=== PATIENT | male | born 1990 | race Caucasian/White ===

== ENCOUNTER 2022-06-03 11:19 | Emergency (ER) | payer OTHER, SELFPAY ==
[2022-06-03 11:26] VITALS: BP 141/93; PULSE 71; RESP 18; TEMP 36.2; O2SAT 99; BMI 24.3
--- NOTE | 2022-06-03 11:27 | ED_ITS ---
HPI - Abdominal Pain General Chief Complaint: General Medical <Denisse Calhoun NP - Last Filed: 06/03/22 12:02> Stated Complaint: unable to eat, stomach issues <Denisse Calhoun NP - Last Filed: 06/03/22 12:02> Time Seen by Provider: 06/03/22 14:01 <Denisse Calhoun NP - Last Filed: 06/03/22 12:02> Source: patient <VAUGHN Ellison - Last Filed: 06/03/22 16:14> Mode of arrival: ambulatory <VAUGHN Ellison Last Filed: 06/03/22 16:14> Limitations: no limitations <VAUGHN Ellison Last Filed: 06/03/22 16:14> History of Present Illness HPI narrative: 31-year-old male with recent contact with him pursue have had influenza presents to the ER for evaluation of inability to eat or drink much for the last 5 days. He states he has ongoing nausea, nasal and chest congestion and generally does not feel well after influenza exposure to his ex-girlfriend last week. He states he initially had cough, nasal congestion, chest congestion and some body aches. He had decreased p.o. intake. He feels like he recovered from the respiratory aspect of the flu but now feels like he ?has inflammation in his stomach. ? he has nausea but has not vomited. He states when he tries to eat his stomach feels full. He feels a burning sensation in his stomach. Pain is in his epigastric area does not radiate <VAUGHN Ellison - Last Filed: 06/03/22 16:14> MD elicited complaint: abdominal pain and other (Nausea ) <VAUGHN Ellison Last Filed: 06/03/22 16:14> Pertinent past history: none <VAUGHN Ellison Last Filed: 06/03/22 16:14> Onset (ago): day(s) <VAUGHN Ellison Last Filed: 06/03/22 16:14> Pain Consistency: intermittent <VAUGHN Ellison Last Filed: 06/03/22 16:14> Location: epigastric <VAUGHN Ellison Last Filed: 06/03/22 16:14> Severity: moderate <VAUGHN Ellison - Last Filed: 06/03/22 16:14> Quality: aching <VAUGHN Ellison - Last Filed: 06/03/22 16:14> Radiation: none <VAUGHN Ellison Last Filed: 06/03/22 16:14> Migration to: no migration <VAUGHN Ellison Last Filed: 06/03/22 16:14> Exacerbating factors: eating <VAUGHN Ellison - Last Filed: 06/03/22 16:14> Relieving factors: nothing <VAUGHN Ellison Last Filed: 06/03/22 16:14> Context: sick contacts <VAUGHN Ellison Last Filed: 06/03/22 16:14> Associated symptoms: nausea <VAUGHN Ellison Last Filed: 06/03/22 16:14> Related Data Home Medications: Previous Rx's Medication Instructions Recorded omeprazole magnesium 20 mg 40 mg PO DAILY #30 tabs 06/03/22 tablet,delayed release (Prilosec OTC) <Denisse Calhoun NP - Last Filed: 06/03/22 12:02> Allergies/Adverse Reactions: Allergies Allergy/AdvReac Type Severity Reaction Status Date / Time No Known Allergies Allergy Verified 06/03/22 11:26 <Denisse Calhoun NP - Last Filed: 06/03/22 12:02> Review of Systems Review of Systems Constitutional: No Fever, No Chills ENT/Mouth: No sore throat, No Rhinorrhea, No Swallowing Difficulty Cardiovascular: No Chest Pain, No SOB Respiratory: No Cough, No Sputum, No Wheezing, No dyspnea Gastrointestinal: No Nausea, No Vomiting, No Diarrhea, + abdominal Pain Genitourinary: No Dysuria, No Urinary Frequency, No Hematuria Musculoskeletal: No joint pain, No Myalgias Skin: No Skin Lesions, No rash Neuro: No Weakness, No Numbness, No Dizziness, No Headache Psych: No Anxiety/Panic, No Depression Heme/Lymph: No Bruising, No Lymphadenopathy <VAUGHN Ellison Last Filed: 06/03/22 16:14> PMFSH Social History Social History: Social History Advance Directives: No Advance Directives Information Provided: Yes <Denisse Calhoun NP - Last Filed: 06/03/22 12:02> Physical Exam ED Vital Signs: Vital Signs - 24 hr 06/03/22 11:26 06/03/22 14:38 Temperature 97.2 F 97.4 F Pulse Rate 71 55 Respiratory Rate 18 16 Blood Pressure 141/93 H 127/83 Pulse Oximetry 99 98 Oxygen Delivery Method Room Air BMI result Body Mass Index 24.3 <Denisse Calhoun NP - Last Filed: 06/03/22 12:02> Vital Signs - 24 hr 06/03/22 11:26 06/03/22 14:38 Temperature 97.2 F 97.4 F Pulse Rate 71 55 Respiratory Rate 18 16 Blood Pressure 141/93 H 127/83 Pulse Oximetry 99 98 Oxygen Delivery Method Room Air BMI result Body Mass Index 24.3 <VAUGHN Ellison - Last Filed: 06/03/22 16:14> Appearance: Alert. Oriented X3. No acute distress. Eyes: Pupils equal, round and reactive to light. ENT: Pharynx normal. Neck: Normal inspection. Neck supple. CVS: Normal heart rate and rhythm. Pulses normal. Respiratory: No respiratory distress. Breath sounds normal. Abdomen: Soft and nontender. +BS x4 Skin: Skin warm and dry. Normal skin color. Normal skin turgor. No rashes. Extremities: No lower extremity edema. Neuro: Oriented X 3. No motor deficit. No sensory deficit. <VAUGHN Ellison - Last Filed: 06/03/22 16:14> Course Course Course Narrative: This is a rapid medical exam. Additional HPI/ROS/PE deferred to primary provider. 31 yo male healthy here tactile temps, nausea/vomiting, upper abdominal pain, sore throat/congestion x 4-5 days. Exposed to someone who had the flu. VSS. Will check testing for flu/covid/rsv, labs, UA. Will provide sublingual Zofran. <Denisse Calhoun NP - Last Filed: 06/03/22 12:02> Reevaluation(s) Reevaluation #1: Patient's labs are unremarkable. Most likely had Flu from his recent exposure. now with nausea and epigastric fullness. Tolerating PO. appears well. likely gastritis, will start on PPI and diet modifications. Patient agrees wtih plan and is stable for d/c. <VAUGHN Ellison - Last Filed: 06/03/22 16:14> Medications Administered Discontinued Medications Generic Name Dose Route Start Last Admin Trade Name Freq PRN Reason Stop Dose Admin Sodium Chloride 1,000 mls @ 999 mls/hr 06/03/22 14:15 06/03/22 14:55 Ns IVCONT 06/03/22 15:15 999 mls/hr .Q1H1M LUIS M Administration Ondansetron HCl 4 mg 06/03/22 11:27 06/03/22 11:31 Ondansetron Odt 4 Mg Tab.Rapdis TRANSLINGU 06/03/22 11:28 4 mg ONCE ONE Administration <Denisse Calhoun NP - Last Filed: 06/03/22 12:02> Medications Administered Discontinued Medications Generic Name Dose Route Start Last Admin Trade Name Freq PRN Reason Stop Dose Admin Sodium Chloride 1,000 mls @ 999 mls/hr 06/03/22 14:15 06/03/22 14:55 Ns IVCONT 06/03/22 15:15 999 mls/hr .Q1H1M LUIS M Administration Ondansetron HCl 4 mg 06/03/22 11:27 06/03/22 11:31 Ondansetron Odt 4 Mg Tab.Rapdis TRANSLINGU 06/03/22 11:28 4 mg ONCE ONE Administration <VAUGHN Ellison - Last Filed: 06/03/22 16:14> MDM - Abdominal Pain Lab Data Result diagrams: : 06/03/22 11:37 06/03/22 11:37 <Denisse Calhoun NP - Last Filed: 06/03/22 12:02> Labs: Lab Results 06/03/22 06/03/22 06/03/22 Range/Units 11:37 11:37 14:36 WBC 5.2 (4.8-10.8) X10*3/uL RBC 5.77 (4.60-5.80) X10*6/uL Hgb 16.5 (14.0-18.0) g/dl Hct 47.8 (42.0-52.0) % MCV 82.8 (80.0-98.0) fL MCH 28.6 (27.0-33.0) pg MCHC 34.5 (31.0-36.0) g/dl RDW 12.0 (11.0-16.0) % Plt Count 190 (160-400) X10*3/uL MPV 11.5 (9.4-12.4) fL Immature Gran % (Auto) 0.2 (0.0-0.4) % Neut % (Auto) 52.9 (45-73) % Lymph % (Auto) 39.2 (20-40) % [place] % (Auto) 7.3 (2-11) % Eos % (Auto) 0.2 (0-4) % Baso % (Auto) 0.2 (0-2) % Lymph # (Auto) 2.1 (1.2-4.9) X10*3/uL [place] # (Auto) 0.4 (0.1-1.2) X10*3/uL Eos # (Auto) 0.0 (0.0-0.4) X10*3/uL Baso # (Auto) 0.0 (0.0-0.2) X10*3/uL Abs Immat Gran (auto) 0.01 (0.00-0.03) X10*3/uL Absolute Neuts (auto) 2.8 (2.0-8.3) x10*3/uL Absolute Nucleated RBC 0.000 (0.0-0.012) X10*3/uL Nucleated RBC % (auto) 0.0 (0.0-0.2) /100WBC Sodium 134 L (135-145) mmol/L Potassium 3.8 (3.3-5.1) mmol/L Chloride 101 (96-108) mmol/L Carbon Dioxide 27 (22-29) mmol/L Anion Gap 10 L (12-20) BUN 10 (9-16) mg/dL Creatinine 0.93 (0.5-1.4) mg/dL Estim Creat Clear Calc 117.1 Estimated GFR > 60 Random Glucose 90 (60-115) mg/dL Calcium 9.7 (8.4-10.2) mg/dL Total Bilirubin 0.7 (0.0-1.0) mg/dL Direct Bilirubin 0.3 (0.0-0.5) mg/dL AST 18 (5-37) U/L ALT 19 (0-40) U/L Alkaline Phosphatase 64 (39-117) U/L Total Protein 7.4 (6.5-8.0) g/dL Albumin 4.5 (3.5-5.0) g/dL Influenza Type A (PCR) NEGATIVE (Negative) Influenza Type B (PCR) NEGATIVE (Negative) RSV RNA Qual (PCR) NEGATIVE (Negative) SARS-CoV-2 RNA (RT-PCR) NEGATIVE (Negative) <Denisse Calhoun, L[employer]ER - Last Filed: 06/03/22 12:02> Lab Results 06/03/22 06/03/22 06/03/22 Range/Units 11:37 11:37 14:36 WBC 5.2 (4.8-10.8) X10*3/uL RBC 5.77 (4.60-5.80) X10*6/uL Hgb 16.5 (14.0-18.0) g/dl Hct 47.8 (42.0-52.0) % MCV 82.8 (80.0-98.0) fL MCH 28.6 (27.0-33.0) pg MCHC 34.5 (31.0-36.0) g/dl RDW 12.0 (11.0-16.0) % Plt Count 190 (160-400) X10*3/uL MPV 11.5 (9.4-12.4) fL Immature Gran % (Auto) 0.2 (0.0-0.4) % Neut % (Auto) 52.9 (45-73) % Lymph % (Auto) 39.2 (20-40) % [place] % (Auto) 7.3 (2-11) % Eos % (Auto) 0.2 (0-4) % Baso % (Auto) 0.2 (0-2) % Lymph # (Auto) 2.1 (1.2-4.9) X10*3/uL [place] # (Auto) 0.4 (0.1-1.2) X10*3/uL Eos # (Auto) 0.0 (0.0-0.4) X10*3/uL Baso # (Auto) 0.0 (0.0-0.2) X10*3/uL Abs Immat Gran (auto) 0.01 (0.00-0.03) X10*3/uL Absolute Neuts (auto) 2.8 (2.0-8.3) x10*3/uL Absolute Nucleated RBC 0.000 (0.0-0.012) X10*3/uL Nucleated RBC % (auto) 0.0 (0.0-0.2) /100WBC Sodium 134 L (135-145) mmol/L Potassium 3.8 (3.3-5.1) mmol/L Chloride 101 (96-108) mmol/L Carbon Dioxide 27 (22-29) mmol/L Anion Gap 10 L (12-20) BUN 10 (9-16) mg/dL Creatinine 0.93 (0.5-1.4) mg/dL Estim Creat Clear Calc 117.1 Estimated GFR > 60 Random Glucose 90 (60-115) mg/dL Calcium 9.7 (8.4-10.2) mg/dL Total Bilirubin 0.7 (0.0-1.0) mg/dL Direct Bilirubin 0.3 (0.0-0.5) mg/dL AST 18 (5-37) U/L ALT 19 (0-40) U/L Alkaline Phosphatase 64 (39-117) U/L Total Protein 7.4 (6.5-8.0) g/dL Albumin 4.5 (3.5-5.0) g/dL Influenza Type A (PCR) NEGATIVE (Negative) Influenza Type B (PCR) NEGATIVE (Negative) RSV RNA Qual (PCR) NEGATIVE (Negative) SARS-CoV-2 RNA (RT-PCR) NEGATIVE (Negative) <VAUGHN Ellison - Last Filed: 06/03/22 16:14> Critical Care Time Critical Care Time Critical Care Time: No <VAUGHN Ellison - Last Filed: 06/03/22 16:14> Discharge Plan Discharge Clinical Impression: Gastritis <Denisse Calhoun NP - Last Filed: 06/03/22 12:02> Patient Disposition: Home, Self-Care <Denisse Calhoun NP - Last Filed: 06/03/22 12:02> Instructions: Gastritis (ED), Diet for Stomach Ulcers and Gastritis (ED) <Denisse Calhoun NP - Last Filed: 06/03/22 12:02> Additional Instructions: Your lab workup today was unremarkable. Your pain is most likely due to gastritis which is and irritation and inflammation of your stomach lining. Start taking the prescribed medication as directed for this. Stick to a bland diet. Avoid foods high in acid, avoid alcohol and NSAID medications like Aleve, Motrin, Advil or ibuprofen. Follow up with your doctor as needed. Follow up with GI doctor if you symptoms persist despite dietary modifications and medication. If you develop new or worsening symptoms call 911 or come back to the ER for further evaluation. <Denisse Calhoun NP - Last Filed: 06/03/22 12:02> Prescriptions: New omeprazole magnesium [Prilosec OTC] 20 mg tablet,delayed release (DR/EC) 40 mg PO DAILY Qty: 30 0RF <Denisse Calhoun NP - Last Filed: 06/03/22 12:02> Stand Alone Forms: Work/School Release <Denisse Calhoun NP - Last Filed: 06/03/22 12:02>
[2022-06-03] MEDS: Ondansetron ODT 4 MG TAB.RAPDIS TRANSLINGU (11:31)
[2022-06-03 11:43] LABS: MANUAL DIFF FLAG NO
[2022-06-03 11:48] LABS: Basophils Percent Auto 0.2 % (0-2); Eosinophils Percent Auto 0.2 % (0-4); Hematocrit 47.8 % (42.0-52.0); Hemoglobin 16.5 g/dl (14.0-18.0); Imm Gran Abs Auto 0.01 X10*3/uL (0.00-0.03); Imm Gran Pct Auto 0.2 % (0.0-0.4); Lymphocytes Absolute Auto 2.1 X10*3/uL (1.2-4.9); Lymphocytes Percent Auto 39.2 % (20-40); Mean Corpuscular HGB Conc 34.5 g/dl (31.0-36.0); Mean Corpuscular Hemoglobin 28.6 pg (27.0-33.0); Mean Corpuscular Volume 82.8 fL (80.0-98.0); Mean Platelet Volume 11.5 fL (9.4-12.4); Monocytes Absolute Auto 0.4 X10*3/uL (0.1-1.2); Monocytes Percent Auto 7.3 % (2-11); Neutrophils Absolute Auto 2.8 x10*3/uL (2.0-8.3); Neutrophils Percent Auto 52.9 % (45-73); Platelet Count 190 X10*3/uL (160-400); Red Blood Count 5.77 X10*6/uL (4.60-5.80); White Blood Count 5.2 X10*3/uL (4.8-10.8)
[2022-06-03 12:14] LABS: Alanine Aminotransferase 19 U/L (0-40); Albumin Level 4.5 g/dL (3.5-5.0); Alkaline Phosphatase 64 U/L (39-117); Anion Gap 10 (12-20); Aspartate Amino Transferase 18 U/L (5-37); Bilirubin Direct 0.3 mg/dL (0.0-0.5); Bilirubin Total 0.7 mg/dL (0.0-1.0); Blood Urea Nitrogen 10 mg/dL (9-16); Calcium 9.7 mg/dL (8.4-10.2); Carbon Dioxide 27 mmol/L (22-29); Chloride 101 mmol/L (96-108); Creatinine Clr Calc Pharmacy 117.1; Estimated Glomerular Filt Rate > 60; Glucose Random 90 mg/dL (60-115); Potassium 3.8 mmol/L (3.3-5.1); Sodium 134 mmol/L (135-145); Total Protein 7.4 g/dL (6.5-8.0)
[2022-06-03 14:38] VITALS: BP 127/83; PULSE 55; RESP 16; TEMP 36.3; O2SAT 98
[2022-06-03] MEDS: 0.9 % Sodium Chloride 1,000 ML 999 ML IVCONT (14:55)
[2022-06-03 15:48] LABS: Influenza A PCR NEGATIVE (Negative); Influenza B PCR NEGATIVE (Negative); Resp Syncy Virus RNA Qual PCR NEGATIVE (Negative); SARS COV2 PCR INHOUSE NEGATIVE (Negative)
== END 2022-06-03 16:08 | disposition home or self-care (01) ==
PROVIDERS: Nurse Practitioner Family; Emergency Provider Emergency Medicine
DX: K29.70 Gastritis, unspecified, without bleeding (principal); Z20.822 Contact with and (suspected) exposure to COVID-19
CPT/HCPCS: 0241U; 36415; 80048; 80076; 85025; 99283; 99284

== ENCOUNTER 2023-01-10 11:05 | Emergency (ER) | payer OTHER, SELFPAY ==
[2023-01-10 11:12] VITALS: BP 152/99; PULSE 86; RESP 16; TEMP 36.6; O2SAT 95; BMI 23.6
--- NOTE | 2023-01-10 11:12 | ED.GENADULT ---
HPI - General Adult General Chief complaint: Nausea/Vomiting/Diarrhea Stated complaint: Vomiting, swollen abd Time Seen by Provider: 01/10/23 11:23 Source: patient, RN notes reviewed and old records reviewed Mode of arrival: ambulatory History of Present Illness HPI narrative: 32-year-old male with a past medical history of gastritis presenting to the ED complaining of epigastric abdominal pain/bloating, nausea, vomiting, and diarrhea x1 year. Also reports intermittent dark and bloody stools. Denies fever/chills, dysuria/hematuria, hematemesis, CP/SOB Onset (ago): year(s) Related Data Previous Rx's Medication Instructions Recorded omeprazole magnesium 20 mg 40 mg PO DAILY #30 tabs 06/03/22 tablet,delayed release (Prilosec OTC) ondansetron 4 mg disintegrating 4 mg PO Q8H PRN nausea and 01/10/23 tablet vomiting #10 tabs sucralfate 1 gram tablet 1 g PO BID 4 weeks #56 tabs 01/10/23 Allergies Allergy/AdvReac Type Severity Reaction Status Date / Time No Known Allergies Allergy Verified 01/10/23 11:12 Review of Systems Review of Systems: Constitutional: No Fever, No Chills, No Fatigue, No Malaise ENT/Mouth: No Ear Pain, No sore throat, No Rhinorrhea, No Swallowing Difficulty Eyes: No Eye Pain, No Swelling, No Redness, No Vision Changes Cardiovascular: No Chest Pain, No SOB, No Palpitations Respiratory: No Cough, No Sputum, No Dyspnea Gastrointestinal: + Nausea, + Vomiting, + Diarrhea, No Constipation, + Abdominal pain, No Hematochezia, + Melena Genitourinary: No irregular bleeding, No Dysuria, No Urinary Frequency, No Hematuria, No Flank Pain Musculoskeletal: No joint pain, No Myalgias, No Joint Swelling Skin: No Skin Lesions, No rash Neuro: No Weakness, No Dizziness, No Headache Yes all other systems are reviewed and are negative Constitutional: Constitutional: Reports as per [facility] Past Medical History Attestation statement: The following information was validated with the patient. Source: old records reviewed Social History Social History Smoked in Last 30 Days: No Use of substances other than those prescribed or required for medical reasons: Yes Substance Use Type: Marijuana Substance Use Frequency: Daily Last Used Substance: Days (ago) Advance Directives: No Physical Exam ED Vital Signs: Vital Signs - 24 hr 01/10/23 11:12 01/10/23 14:21 01/10/23 16:29 Temperature 97.9 F 98.8 F 98.6 F Pulse Rate 86 88 71 Respiratory Rate 16 18 16 Blood Pressure 152/99 H 142/70 H 118/70 Pulse Oximetry 95 96 97 Oxygen Delivery Method Room Air Room Air Room Air BMI result Body Mass Index 23.6 Const General: cooperative, healthy appearing and no acute distress Orientation/consciousness: patient oriented x3 Limitations: no limitations HENMT Head: Yes normal to inspection and Yes atraumatic Ears: hearing grossly normal bilaterally General nose exam: Normal external nose present Face and sinus: Yes normal facial exam Eyes General: appearance normal, both eyes and all related structures EOM: EOMs intact bilaterally Neck Neck: Yes normal visual inspection and Yes no meningeal signs Resp Effort & Inspection: normal respiratory effort and no respiratory distress Auscultation: clear to auscultation bilaterally Cardio Rate: regular rate Heart sounds: S1 normal heart sound present and S2 normal heart sound present GI Inspection: Yes normal to inspection Palpation (GI): Soft to palpation, Tenderness to palpation present (GI) in the epigastrum; with no rebound tenderness, no guarding and not rigid General: Yes no CVA tenderness Back/Spine/Pelvis Back: no CVA tenderness Skin Rashes: no rashes Wounds: no wounds Neuro General: patient oriented x3, tone normal and no meningeal signs Gait exam (Neuro): Normal gait present Extrem General: Yes normal to inspection Course Course Course Narrative: This is an RME: Additional HPI, ROS, PE not included below will be deferred to primary provider. Patient is a 32-year-old male with no past medical history presenting to the emergency department with complaint of nausea, vomiting, and diarrhea. He also reports intermittent epigastric pain and bloating. States that his brother last year from stomach cancer. He denies bloody or coffee ground emesis, but does report intermittent bright red blood in stools for past several years. -no leukocytosis. Labs otherwise reassuring. UA with protein and >=160 ketones, not infected > patient received IVF in the ED > patient unable to provide stool sample in the ED, still refusing rectal exam -1700--on re-evaluation patient reports symptomatic improvement, is tolerating p.o.. Stressed importance of close follow-up with the GI/PCP and compliance with newly prescribed medication Medications Administered Discontinued Medications Generic Name Dose Route Start Last Admin Trade Name Ольга PRN Reason Stop Dose Admin Al Hydroxide/Mg Hydroxide 30 ml 01/10/23 11:42 01/10/23 12:07 Magnesium Hydrox/Alum Hydrox 30 Ml Oral.Susp PO 01/10/23 11:43 30 ml ONCE ONE Administration Dicyclomine HCl 10 mg 01/10/23 14:27 01/10/23 15:17 Dicyclomine Hcl 10 Mg Capsule PO 01/10/23 14:28 10 mg ONCE ONE Administration Famotidine 20 mg 01/10/23 11:42 01/10/23 12:07 Famotidine 20 Mg Tablet PO 01/10/23 11:43 20 mg ONCE ONE Administration Sodium Chloride 1,000 mls @ 999 mls/hr 01/10/23 14:45 01/10/23 16:00 Ns IV 01/10/23 15:45 999 mls/hr .Q1H1M LUIS M Infusion Metoclopramide HCl 10 mg 01/10/23 14:27 01/10/23 15:17 Metoclopramide Hcl 10 Mg Tablet PO 01/10/23 14:28 10 mg ONCE ONE Administration Ondansetron HCl 4 mg 01/10/23 11:42 01/10/23 12:07 Ondansetron Odt 4 Mg Tab.Rapdis TRANSLINGU 01/10/23 11:43 4 mg ONCE ONE Administration Sucralfate 1 gm 01/10/23 14:35 01/10/23 15:17 Sucralfate 1 Gm Tablet PO 01/10/23 14:36 1 gm ONCE ONE Administration Medical Decision Making Medical Decision Making MDM Narrative: 32-year-old male with a past medical history of gastritis presenting to the ED complaining of epigastric abdominal pain/bloating, nausea, vomiting, and diarrhea x1 year. Also reports intermittent dark and bloody stools. On exam mildly hypertensive likely from discomfort, abdomen soft with mild epigastric tenderness, no rebound or guarding, no CVAT. Patient deferred/refused rectal exam. Concern for gastritis/GERD vs pancreatitis vs GI bleed. Rule out anemia. Lower suspicion for cholecystitis/lithiasis, appendicitis/diverticulitis or UTI Plan: Labs, UA, occult stool if patient can provide stool sample, GI cocktail Please refer to course for remaining clinical decision making, interpretation of labs/imaging results, and discussions with consultants and/or family members. Differential Diagnosis Differential Diagnoses: The differential diagnosis associated with the presentation includes As above Admission/Observation Consideration of admission/observation: Escalation of care including admission/observation considered Lab Data MDM Lab Attestation statement: I reviewed the patient's lab results. 01/10/23 11:20 01/10/23 11:20 Labs: Lab Results 01/10/23 01/10/23 01/10/23 Range/Units 11:20 11:20 14:20 WBC 10.1 (4.8-10.8) X10*3/uL RBC 5.69 (4.60-5.80) X10*6/uL Hgb 16.5 (14.0-18.0) g/dl Hct 47.7 (42.0-52.0) % MCV 83.8 (80.0-98.0) fL MCH 29.0 (27.0-33.0) pg MCHC 34.6 (31.0-36.0) g/dl RDW 12.2 (11.0-16.0) % Plt Count 246 D (160-400) X10*3/uL MPV 10.7 (9.4-12.4) fL Immature Gran % (Auto) 0.2 (0.0-0.4) % Neut % (Auto) 80.1 H (45-73) % Lymph % (Auto) 15.8 L (20-40) % [place] % (Auto) 3.5 (2-11) % Eos % (Auto) 0.2 (0-4) % Baso % (Auto) 0.2 (0-2) % Lymph # (Auto) 1.6 (1.2-4.9) X10*3/uL [place] # (Auto) 0.4 (0.1-1.2) X10*3/uL Eos # (Auto) 0.0 (0.0-0.4) X10*3/uL Baso # (Auto) 0.0 (0.0-0.2) X10*3/uL Abs Immat Gran (auto) 0.02 (0.00-0.03) X10*3/uL Absolute Neuts (auto) 8.1 (2.0-8.3) x10*3/uL Absolute Nucleated RBC 0.000 (0.0-0.012) X10*3/uL Nucleated RBC % (auto) 0.0 (0.0-0.2) /100WBC Sodium 137 (135-145) mmol/L Potassium 3.9 (3.3-5.1) mmol/L Chloride 104 (96-108) mmol/L Carbon Dioxide 21 L (22-29) mmol/L Anion Gap 16 (12-20) BUN 12 (9-16) mg/dL Creatinine 1.02 (0.5-1.4) mg/dL Estim Creat Clear Calc 105.8 Estimated GFR > 60 Random Glucose 84 (60-115) mg/dL Calcium 10.6 H D (8.4-10.2) mg/dL Magnesium 2.1 (1.6-2.6) mg/dL Total Bilirubin 1.2 H (0.0-1.0) mg/dL AST 19 (5-37) U/L ALT 36 (0-40) U/L Alkaline Phosphatase 78 (39-117) U/L Total Protein 8.2 H (6.5-8.0) g/dL Albumin 4.9 (3.5-5.0) g/dL Lipase 19 (8-78) U/L Urine Color Yellow Urine Appearance Clear Urine pH 5.5 (5.0-9.0) Ur Specific [place] >= 1.030 H (1.005-1.025) Urine Protein 30 (1+) H (Neg-Trace) mg/dL Urine Glucose (UA) Negative (Negative) mg/dL Urine Ketones >=160 (Negative) mg/dL Urine Blood Negative (Negative) Urine Nitrite Negative (Negative) Ur Leukocyte Esterase Negative (Negative) Urine RBC 0-2 (0-2) /HPF Urine WBC 0-5 (0-5) /HPF Ur Squamous Epith Cells 0-2 (0-2) /HPF Urine Bacteria None Seen (None Seen) Hyaline Casts 0-2 (0-2) /LPF Radiology Impression Discussion of test interpretation with radiology: I have reviewed the radiologist's reading. External Record Review External record reviewed: Inpatient record, Office record, Outpatient record, Prior outpatient labs, Prior outpatient radiology, Primary care record and Outside ED record Tests considered The following testing was considered but not selected: As above Prescription Management I considered prescription management with: Pain Medication Chronic Conditions family hs gastric CA Discharge Plan Discharge Clinical Impression: Epigastric abdominal pain, Dehydration Patient Disposition: Home, Self-Care Instructions: Dehydration (ED), Epigastric Pain (ED) Additional Instructions: Your blood work is reassuring however you are mildly dehydrated. Please increase fluid intake Zofran as an antinausea medication, take as needed Continue taking omeprazole. In addition sucralfate will help with potential ulcers YOU NEED TO FOLLOW-UP WITH A GI SPECIALIST If symptoms persist or worsen, you are unable to eat or drink persistent nausea/vomiting or worsening pain return to the emergency department Prescriptions: New sucralfate 1 gram tablet 1 g PO BID 28 Days Qty: 56 0RF ondansetron 4 mg tablet,disintegrating 4 mg PO Q8H PRN (Reason: nausea and vomiting) Qty: 10 0RF No Action omeprazole magnesium [Prilosec OTC] 20 mg tablet,delayed release (DR/EC) 40 mg PO DAILY Qty: 30 0RF Referrals: [facility] [place] G[facility] [Provider Group] - 5 days Physician,Unknown J [Primary Care Provider] - Interventions: ED Discharge Assessment Last Done: 01/10/23 17:27 Discharge Date/Time: 01/10/23 17:27
[2023-01-10 11:24] LABS: MANUAL DIFF FLAG NO
[2023-01-10 11:26] LABS: Basophils Percent Auto 0.2 % (0-2); Eosinophils Percent Auto 0.2 % (0-4); Hematocrit 47.7 % (42.0-52.0); Hemoglobin 16.5 g/dl (14.0-18.0); Imm Gran Abs Auto 0.02 X10*3/uL (0.00-0.03); Imm Gran Pct Auto 0.2 % (0.0-0.4); Lymphocytes Absolute Auto 1.6 X10*3/uL (1.2-4.9); Lymphocytes Percent Auto 15.8 % (20-40); Mean Corpuscular HGB Conc 34.6 g/dl (31.0-36.0); Mean Corpuscular Volume 83.8 fL (80.0-98.0); Mean Platelet Volume 10.7 fL (9.4-12.4); Monocytes Absolute Auto 0.4 X10*3/uL (0.1-1.2); Monocytes Percent Auto 3.5 % (2-11); Neutrophils Absolute Auto 8.1 x10*3/uL (2.0-8.3); Neutrophils Percent Auto 80.1 % (45-73); Platelet Count 246 X10*3/uL (160-400); Red Blood Count 5.69 X10*6/uL (4.60-5.80); Red Cell Distribution Width 12.2 % (11.0-16.0); White Blood Count 10.1 X10*3/uL (4.8-10.8)
[2023-01-10 12:01] LABS: Alanine Aminotransferase 36 U/L (0-40); Albumin Level 4.9 g/dL (3.5-5.0); Alkaline Phosphatase 78 U/L (39-117); Anion Gap 16 (12-20); Aspartate Amino Transferase 19 U/L (5-37); Bilirubin Total 1.2 mg/dL (0.0-1.0); Blood Urea Nitrogen 12 mg/dL (9-16); Calcium 10.6 mg/dL (8.4-10.2); Carbon Dioxide 21 mmol/L (22-29); Chloride 104 mmol/L (96-108); Creatinine Clr Calc Pharmacy 105.8; Estimated Glomerular Filt Rate > 60; Glucose Random 84 mg/dL (60-115); Lipase 19 U/L (8-78); Potassium 3.9 mmol/L (3.3-5.1); Sodium 137 mmol/L (135-145); Total Protein 8.2 g/dL (6.5-8.0)
[2023-01-10] MEDS: Magnesium Hydrox/Alum Hydrox 30 ML ORAL.SUSP PO (12:07)
[2023-01-10] MEDS: Ondansetron ODT 4 MG TAB.RAPDIS TRANSLINGU (12:07)
[2023-01-10] MEDS: Famotidine 20 MG TABLET PO (12:07)
[2023-01-10 12:41] LABS: Magnesium 2.1 mg/dL (1.6-2.6)
[2023-01-10 14:21] VITALS: BP 142/70; PULSE 88; RESP 18; TEMP 37.1; O2SAT 96
[2023-01-10 14:29] LABS: Appearance Urine Clear; Color Urine Yellow; Glucose Urine UA Negative (Negative); Leukocyte Esterase Urine Negative (Negative); Nitrite Urine Negative (Negative); PH 5.5 (5.0-9.0); Specific Gravity - Urine >= 1.030 (1.005-1.025); UMIC TRIGGER UACC YES; Urine Blood Negative (Negative); Urine Ketones >=160 mg/dL (Negative); Urine Protein 30 (1+) mg/dL (Neg-Trace)
[2023-01-10 14:31] LABS: Bacteria Urine None Seen (None Seen); Hyaline Casts Urine 0-2 /LPF (0-2); RBC Urine 0-2 /HPF (0-2); Squamous Epithelial Cell Urine 0-2 /HPF (0-2); WBC Urine 0-5 /HPF (0-5)
[2023-01-10] MEDS: Dicyclomine HCl 10 MG CAPSULE PO (15:17)
[2023-01-10] MEDS: Metoclopramide HCl 10 MG TABLET PO (15:17)
[2023-01-10] MEDS: Sucralfate 1 GM TABLET PO (15:17)
[2023-01-10] MEDS: 0.9 % Sodium Chloride 1,000 ML 999 ML IV (15:18)
--- NOTE | 2023-01-10 16:03 | PC.NURSE ---
IV was completely infused without any incidence at 1600pm
[2023-01-10 16:29] VITALS: BP 118/70; PULSE 71; RESP 16; TEMP 37; O2SAT 97
== END 2023-01-10 17:27 | disposition home or self-care (01) ==
PROVIDERS: Physician Assistant; Registered Nurse Emergency; Emergency Provider Emergency Medicine
DX: R10.13 Epigastric pain (principal); E86.0 Dehydration; R11.2 Nausea with vomiting, unspecified; F12.90 Cannabis use, unspecified, uncomplicated
CPT/HCPCS: 36415; 80053; 81001; 83690; 83735; 85025; 96360; 99284

== ENCOUNTER 2023-01-19 19:07 | Emergency (ER) | payer OTHER, SELFPAY ==
[2023-01-19 20:39] VITALS: BP 148/94; PULSE 79; RESP 20; TEMP 36.9; O2SAT 97; BMI 24.8
--- NOTE | 2023-01-19 20:39 | ED.GENADULT ---
HPI - General Adult General Chief complaint: Abdominal Pain Stated complaint: Abdominal pain Source: patient Mode of arrival: ambulatory Limitations: no limitations History of Present Illness HPI narrative: Patient is a 32 year old assigned male at with a history of gastritis and peptic ulcers presenting to the emergency department today with epigastric pain. Patient states that he was here recently for this same complaint and the pain is back. Patient denies any dizziness, lightheadedness, fever, chills, blurry vision, double vision, loss of vision, chest pain, difficulty breathing, shortness of breath, back pain, night sweats, pain with urination, increased urinary frequency, increased urinary urgency, blood in his urine, syncope or a near syncopal episode, recent trauma or falls, bowel incontinence, bladder incontinence, bowel retention, bladder retention, or any other complaints at this time. Onset (ago): day(s) Location: abdomen Radiation: non-radiation Severity: mild Severity scale (1-10): 3 Quality: dull Pain Consistency: constant Relieving factors: none Exacerbating factors: none Associated symptoms: nausea/vomiting Treatments prior to arrival: none Related Data Previous Rx's Medication Instructions Recorded omeprazole magnesium 20 mg 40 mg PO DAILY #30 tabs 06/03/22 tablet,delayed release (Prilosec OTC) ondansetron 4 mg disintegrating 4 mg PO Q8H PRN nausea and 01/10/23 tablet vomiting #10 tabs sucralfate 1 gram tablet 1 g PO BID 4 weeks #56 tabs 01/10/23 Allergies Allergy/AdvReac Type Severity Reaction Status Date / Time No Known Allergies Allergy Verified 01/19/23 20:42 Review of Systems Constitutional: Constitutional: Reports no additional constitutional complaints, Denies chills, Denies fever(s) and Denies night sweats Eyes: Eyes: Reports no additional eye complaints, Denies blurry vision, Denies change in vision, Denies diplopia, Denies eye discharge, Denies loss of vision and Denies eye pain ENT: Denies dizziness Cardiovascular: Cardiovascular: Reports no additional cardiovascular complaints, Denies chest pain, Denies lightheadedness, Denies Loss of Consciousness and Denies dyspnea Respiratory: Respiratory: Reports no additional respiratory complaints and Denies dyspnea Gastrointestinal: Gastrointestinal: Reports no additional gastrointestinal complaints, Reports abdominal pain, Denies melena, Reports hematochezia, Denies change in bowel habits, Denies change in stool character, Reports nausea and Reports vomiting Genitourinary: Genitourinary: Reports no additional male genitourinary complaints, Denies hematuria, Denies oliguria, Denies difficulty urinating, Denies dysuria, Denies urinary frequency, Denies urinary hesitancy, Denies urinary incontinence and Denies urinary urgency Musculoskeletal: Musculoskeletal: Reports no additional musculoskeletal complaints, Denies numbness and Denies tingling Neurologic: Denies dizziness, Denies loss of vision, Denies numbness and Denies tingling Psychiatric: Psychiatric: Reports no additional psychiatric complaints Endocrine: Endocrine: Reports no additional endocrine complaints Hematologic/Lymphatic: Hematologic/Lymphatic: Reports no additional hematologic/lymphatic complaints Allergic/Immunologic: Allergic/Immunologic: Reports no additional allergic/immunologic complaints PMFSH Past Medical History Attestation statement: The following information was validated with the patient. Source: old records reviewed and nursing notes reviewed Social History Social History Substance Use Type: Marijuana Advance Directives: No Advance Directives Information Provided: No Physical Exam ED Vital Signs: Vital Signs - 24 hr 01/19/23 20:39 Temperature 98.5 F Pulse Rate 79 Respiratory Rate 20 Blood Pressure 148/94 H Pulse Oximetry 97 Oxygen Delivery Method Room Air BMI result Body Mass Index 24.8 Const General: cooperative, no acute distress, alert and awake Nutritional Appearance: well nourished Orientation/consciousness: patient oriented x3 Limitations: no limitations HENMT Head: Yes normal to inspection and Yes atraumatic Ears: hearing grossly normal bilaterally and external ears normal General nose exam: Normal external nose present, no nasal discharge noted and no epistaxis Face and sinus: Yes normal facial exam, No abrasion and No laceration Mouth: Normal oral and palatal mucosa present, no drooling and no muffled voice Eyes General: appearance normal, both eyes and all related structures Periorbital: periorbital findings normal Eyelids: Yes eyelids normal Conjunctivae: conjunctivae normal Pupils: Equal, round and reactive pupils present EOM: EOMs intact bilaterally Neck Neck: Yes normal visual inspection, Yes full ROM and Yes no lymphadenopathy Chest Chest palpation & inspection: normal inspection of the chest Resp Effort & Inspection: normal respiratory effort and able to speak in complete sentences GI Inspection: Yes normal to inspection Palpation (GI): Soft to palpation, not firm, nontender and no guarding Neuro General: patient oriented x3 and moves all extremities Cranial nerves: Yes Equal, round and reactive pupils present Cognition (Neuro): normal cognition Motor exam (neuro): 5/5 motor strength present throughout Sensory Exam: Normal double simultaneous stimulation for sensation Coordination: [id number] test normal Extrem General: Yes normal to inspection, Yes full ROM and Yes capillary refill normal Psych Appearance: grossly normal Mental Status: mental status grossly normal Affect: normal affect Attitude: cooperative Thought process: Normal thought process present Thought content: Normal thought content present Insight: Good insight present (Psych) Course Course Course Narrative: RME performed by Payton Nunez PA-C. Patient is a 32 year old assigned male at presenting to the emergency department with abdominal pain, fatigue, and lack of appetite. Patient states that he was seen here on 01/10/2023 for this and it has not gotten better. Labs ordered. Patient placed back in the waiting room pending room availability and results. Medical Decision Making Medical Decision Making MDM Narrative: Patient is a 32 year old assigned male at with a history of gastritis and peptic ulcers presenting to the emergency department today with abdominal pain, nausea, vomiting, and bright red blood when wiping. Patient's physical exam was unremarkable. Patient's blood work was unremarkable. Patient eloped from the department before myself or any of the other emergency department providers could explain any physical exam findings, test results, treatment or treatment plan. Differential Diagnosis Differential Diagnoses: The differential diagnosis associated with the presentation includes Epigastric pain Ulcers Gastritis Chronic abdominal pain Lab Data MDM Lab Attestation statement: I reviewed the patient's lab results. My interpretation of these studies and their corresponding values is that they are grossly normal. 01/19/23 20:48 01/19/23 20:48 Labs: Lab Results 01/19/23 01/19/23 Range/Units 20:48 20:48 WBC 9.2 (4.8-10.8) X10*3/uL RBC 5.82 H (4.60-5.80) X10*6/uL Hgb 16.8 (14.0-18.0) g/dl Hct 49.0 (42.0-52.0) % MCV 84.2 (80.0-98.0) fL MCH 28.9 (27.0-33.0) pg MCHC 34.3 (31.0-36.0) g/dl RDW 12.0 (11.0-16.0) % Plt Count 236 (160-400) X10*3/uL MPV 10.7 (9.4-12.4) fL Immature Gran % (Auto) 0.2 (0.0-0.4) % Neut % (Auto) 76.4 H (45-73) % Lymph % (Auto) 16.2 L (20-40) % [facility] [facility] % (Auto) 6.3 (2-11) % Eos % (Auto) 0.6 (0-4) % Baso % (Auto) 0.3 (0-2) % Lymph # (Auto) 1.5 (1.2-4.9) X10*3/uL [facility] [place] [facility] # (Auto) 0.6 (0.1-1.2) X10*3/uL Eos # (Auto) 0.1 (0.0-0.4) X10*3/uL Baso # (Auto) 0.0 (0.0-0.2) X10*3/uL Abs Immat Gran (auto) 0.02 (0.00-0.03) X10*3/uL Absolute Neuts (auto) 7.1 (2.0-8.3) x10*3/uL Absolute Nucleated RBC 0.000 (0.0-0.012) X10*3/uL Nucleated RBC % (auto) 0.0 (0.0-0.2) /100WBC Sodium 136 (135-145) mmol/L Potassium 3.9 (3.3-5.1) mmol/L Chloride 102 (96-108) mmol/L Carbon Dioxide 23 (22-29) mmol/L Anion Gap 15 (12-20) BUN 17 H (9-16) mg/dL Creatinine 1.12 (0.5-1.4) mg/dL Estim Creat Clear Calc 96.4 Estimated GFR > 60 Random Glucose 98 (60-115) mg/dL Calcium 10.1 (8.4-10.2) mg/dL Magnesium 2.3 (1.6-2.6) mg/dL Total Bilirubin 0.9 (0.0-1.0) mg/dL AST 21 (5-37) U/L ALT 39 (0-40) U/L Alkaline Phosphatase 76 (39-117) U/L Total Protein 8.2 H (6.5-8.0) g/dL Albumin 4.8 (3.5-5.0) g/dL External Record Review External record reviewed: Other (reviewed patients previous ED visit) Chronic Conditions Patient?s care impacted by: Other (gastritis, peptic ulcers) Discharge Plan Discharge Clinical Impression: Abdominal pain Patient Disposition: Elopement Prescriptions: No Action omeprazole magnesium [Prilosec OTC] 20 mg tablet,delayed release (DR/EC) 40 mg PO DAILY Qty: 30 0RF sucralfate 1 gram tablet 1 g PO BID 28 Days Qty: 56 0RF ondansetron 4 mg tablet,disintegrating 4 mg PO Q8H PRN (Reason: nausea and vomiting) Qty: 10 0RF Discharge Date/Time: 01/20/23 01:18
[2023-01-19 20:54] LABS: MANUAL DIFF FLAG NO
--- NOTE | 2023-01-19 20:55 | MHC.EDTECH ---
PATIENT BLOOD DRAWN AND SENT TO LAB .
[2023-01-19 20:56] LABS: Basophils Percent Auto 0.3 % (0-2); Eosinophils Absolute Auto 0.1 X10*3/uL (0.0-0.4); Eosinophils Percent Auto 0.6 % (0-4); Hemoglobin 16.8 g/dl (14.0-18.0); Imm Gran Abs Auto 0.02 X10*3/uL (0.00-0.03); Imm Gran Pct Auto 0.2 % (0.0-0.4); Lymphocytes Absolute Auto 1.5 X10*3/uL (1.2-4.9); Lymphocytes Percent Auto 16.2 % (20-40); Mean Corpuscular HGB Conc 34.3 g/dl (31.0-36.0); Mean Corpuscular Hemoglobin 28.9 pg (27.0-33.0); Mean Corpuscular Volume 84.2 fL (80.0-98.0); Mean Platelet Volume 10.7 fL (9.4-12.4); Monocytes Absolute Auto 0.6 X10*3/uL (0.1-1.2); Monocytes Percent Auto 6.3 % (2-11); Neutrophils Absolute Auto 7.1 x10*3/uL (2.0-8.3); Neutrophils Percent Auto 76.4 % (45-73); Platelet Count 236 X10*3/uL (160-400); Red Blood Count 5.82 X10*6/uL (4.60-5.80); White Blood Count 9.2 X10*3/uL (4.8-10.8)
[2023-01-19 21:10] LABS: Alanine Aminotransferase 39 U/L (0-40); Albumin Level 4.8 g/dL (3.5-5.0); Alkaline Phosphatase 76 U/L (39-117); Anion Gap 15 (12-20); Aspartate Amino Transferase 21 U/L (5-37); Bilirubin Total 0.9 mg/dL (0.0-1.0); Blood Urea Nitrogen 17 mg/dL (9-16); Calcium 10.1 mg/dL (8.4-10.2); Carbon Dioxide 23 mmol/L (22-29); Chloride 102 mmol/L (96-108); Creatinine Clr Calc Pharmacy 96.4; Estimated Glomerular Filt Rate > 60; Glucose Random 98 mg/dL (60-115); Magnesium 2.3 mg/dL (1.6-2.6); Potassium 3.9 mmol/L (3.3-5.1); Sodium 136 mmol/L (135-145); Total Protein 8.2 g/dL (6.5-8.0)
--- NOTE | 2023-01-20 00:55 | PC.NURSE ---
attempted to call patient into ED. NO answer in waiting room despite multiple calls
== END 2023-01-20 01:18 | disposition left against medical advice (07) ==
PROVIDERS: Physician Assistant Medical; Emergency Provider Emergency Medicine
DX: R10.13 Epigastric pain (principal)
CPT/HCPCS: 36415; 80053; 83735; 85025; 99281

== ENCOUNTER 2024-01-14 17:16 | Emergency (ER) | payer MEDICAID, SELFPAY ==
[2024-01-14 17:45] VITALS: BP 119/70; PULSE 88; RESP 18; TEMP 36.4; O2SAT 98; BMI 25.0
--- NOTE | 2024-01-14 17:46 | ED_ITS ---
HPI - General Adult General Chief complaint: Ear Problems Stated complaint: L ear pain Time Seen by Provider: 01/14/24 21:22 Source: patient Mode of arrival: ambulatory Limitations: no limitations History of Present Illness HPI narrative: Patient is a 33-year-old male who presents to the emergency department for evaluation of left ear pain. Onset 4 days ago. He purchased OTC drops at the pharmacy without much improvement. He denies any active drainage from the ear, denies any trauma or injury, denies inserting anything into the ear canal aside from the OTC drops. Denies fevers, chills, URI symptoms Related Data Previous Rx's ?Medication ?Instructions ?Recorded omeprazole magnesium 20 mg 40 mg (2 x 20 mg) PO DAILY #30 tabs 06/03/22 tablet,delayed release (Prilosec OTC) ondansetron 4 mg disintegrating 4 mg PO Q8H PRN nausea and 01/10/23 tablet vomiting #10 tabs sucralfate 1 gram tablet 1 g PO BID 4 weeks #56 tabs 01/10/23 ciprofloxacin 0.3 %-dexamethasone 4 drp otic (ear) left BID 7 days 01/14/24 0.1 % ear drops,suspension #7.5 mL Allergies Allergy/AdvReac Type Severity Reaction Status Date / Time No Known Allergies Allergy Verified 01/14/24 17:47 Review of Systems Review of Systems: Yes all other systems are reviewed and are negative PMFSH Past Medical History Attestation statement: The following information was validated with the patient. Source: old records reviewed Social History Social History Substance Use Type: Marijuana Advance Directives: No Advance Directives Information Provided: No Do you have a plan to hurt others: No Plan Physical Exam ED Vital Signs: Vital Signs - 24 hr 01/14/24 17:45 01/14/24 21:58 01/14/24 22:57 Temperature 97.6 F 98.2 F 98.2 F Pulse Rate 88 52 52 Respiratory Rate 18 16 16 Blood Pressure 119/70 123/72 123/72 Pulse Oximetry 98 98 98 Oxygen Delivery Method Room Air Room Air Room Air BMI result Body Mass Index 25.0 Appearance: Alert.?Oriented to person, place and time. No acute distress.?Normal affect. Eyes: Pupils equal, round and reactive to light.? ENT: Pharynx normal.??Right TM and auditory canal normal. Left TM intact without erythema or oozing. Copious white exudates of the left external canal, concerning for otitis externa Neck: Normal inspection.? Neck supple.??No cervical adenopathy CVS: Heart sounds normal. Normal heart rate and rhythm.? Pulses normal.?? Respiratory: No respiratory distress.? Lung sounds clear to auscultation bilaterally?? Skin: Skin warm and dry.? Normal skin color.? Neuro: Moves all extremities spontaneously. Sensation intact bilaterally. Ambulates with normal steady gait. Course Course Course Narrative: RME performed by Payton Nunez PA-C. Patient is a 33 year old assigned male at presenting to the emergency department with right ear pain. Patient states over the last 4 days he has had right ear pain and over the counter drops are not helping. Detailed physical exam and review of systems are deferred to the packing machine operator. Swabs ordered. Patient placed back in the waiting room pending room availability and results. Medical Decision Making Medical Decision Making [facility] Narrative: Patient is a 33-year-old male who presents emergency department for evaluation of atraumatic left ear pain as per HPI. Overall appears well, nontoxic, afebrile. Examination is consistent with otitis externa, no evidence of acute otitis media, not consistent with malignant otitis externa. No mastoid tendern ess to suggest mastoiditis. Stable for discharge home, Ciprodex drops him to pharmacy, discussed return precautions, outpatient follow-up with primary care provider. Differential Diagnosis Differential Diagnoses: The differential diagnosis associated with the presentation includes (See narrative above) Lab Data [facility] Lab Attestation statement: I reviewed the patient's lab results. (Viral panel negative, strep testing negative.) Labs: Lab Results 01/14/24 Range/Units 17:58 Influenza Type A (PCR) NEGATIVE (Negative) Influenza Type B (PCR) NEGATIVE (Negative) RSV RNA Qual (PCR) NEGATIVE (Negative) SARS-CoV-2 RNA (RT-PCR) NEGATIVE (Negative) S. pyogenes GrpA DIVINA Negative (Negative) Prescription Management I considered prescription management with: Antibiotic Discharge Plan Discharge Clinical Impression: Otitis externa Patient Disposition: Home, Self-Care Instructions: Otitis Externa (ED) Prescriptions: New ciprofloxacin-dexamethasone 0.3-0.1 % drops,suspension 4 drp otic (ear) left BID 7 Days Qty: 7.5 0RF No Action omeprazole magnesium [Prilosec OTC] 20 mg tablet,delayed release (DR/EC) 40 mg PO DAILY Qty: 30 0RF sucralfate 1 gram tablet 1 g PO BID 28 Days Qty: 56 0RF ondansetron 4 mg tablet,disintegrating 4 mg PO Q8H PRN (Reason: nausea and vomiting) Qty: 10 0RF Referrals: Lorraine Chappell MD [Primary Care Provider] - Interventions: ED Discharge Assessment Last Done: 01/14/24 22:57 Discharge Date/Time: 01/14/24 22:57 Print Language: Thai
[2024-01-14 18:12] LABS: IDNOW Serial# 08D9AD1C; Strep A Nucleic Acid Negative (Negative)
[2024-01-14 18:45] LABS: Influenza A PCR NEGATIVE (Negative); Influenza B PCR NEGATIVE (Negative); Resp Syncy Virus RNA Qual PCR NEGATIVE (Negative); SARS COV2 PCR INHOUSE NEGATIVE (Negative)
[2024-01-14 21:58] VITALS: BP 123/72; PULSE 52; RESP 16; TEMP 36.8; O2SAT 98
[2024-01-14 22:57] VITALS: BP 123/72; PULSE 52; RESP 16; TEMP 36.8; O2SAT 98
== END 2024-01-14 22:57 | disposition home or self-care (01) ==
PROVIDERS: Physician Assistant Medical; Emergency Provider Emergency Medicine; PCP Internal Medicine
DX: H60.92 Unspecified otitis externa, left ear (principal); H92.02 Otalgia, left ear; R07.0 Pain in throat; Z03.818 Encounter for observation for suspected exposure to other biological agents ruled out
CPT/HCPCS: 0241U; 87651; 99282; 99283

== ENCOUNTER 2024-01-19 03:17 | Emergency (ER) | payer MEDICAID, SELFPAY ==
[2024-01-19 03:24] VITALS: BP 133/95; PULSE 80; RESP 16; TEMP 36.5; O2SAT 97; BMI 25.8
--- NOTE | 2024-01-19 04:21 | ED.EAR ---
HPI - Ear Problem General Chief complaint: Ear Problems Stated complaint: ear infection Time Seen by Provider: 01/19/24 04:16 Source: patient Mode of arrival: ambulatory Limitations: no limitations History of Present Illness ED Provider: chey MAHARAJ Narrative: Patient complaining of left ear pain for last 1 week was prescribed Ciprodex 4 otitis externa unable to get the medication because of insurance Related Data Previous Rx's ?Medication ?Instructions ?Recorded omeprazole magnesium 20 mg 40 mg (2 x 20 mg) PO DAILY #30 tabs 06/03/22 tablet,delayed release (Prilosec OTC) ondansetron 4 mg disintegrating 4 mg PO Q8H PRN nausea and 01/10/23 tablet vomiting #10 tabs sucralfate 1 gram tablet 1 g PO BID 4 weeks #56 tabs 01/10/23 ciprofloxacin 0.3 %-dexamethasone 4 drp otic (ear) left BID 7 days 01/14/24 0.1 % ear drops,suspension #7.5 mL amoxicillin 875 mg-potassium 1 tab PO BID #20 tabs 01/19/24 clavulanate 125 mg tablet ibuprofen 600 mg tablet 600 mg PO Q6H PRN fever or pain 01/19/24 #30 tabs Allergies Allergy/AdvReac Type Severity Reaction Status Date / Time No Known Allergies Allergy Verified 01/19/24 03:26 Review of Systems Review of Systems: Yes all other systems are reviewed and are negative [facility] Social History Social History Substance Use Type: Marijuana Advance Directives: No Advance Directives Information Provided: No Do you have a plan to hurt others: No Plan Physical Exam Vital Signs: Vital Signs: Last Vital Signs Temp 97.7 F 01/19/24 03:24 Pulse 80 01/19/24 03:24 Resp 16 01/19/24 03:24 BP 133/95 H 01/19/24 03:24 Pulse Ox 97 01/19/24 03:24 O2 Del Method Room Air 01/19/24 03:24 BMI result Body Mass Index 25.8 Appearance: Alert. Oriented X3. No acute distress. ENT: Pharynx normal. Oral Mucosa moist left EAC with discharge and swelling slightly inflamed tympanic membrane Neck: Normal inspection. Neck supple. CVS: Normal heart rate and rhythm. Pulses normal. Respiratory: No respiratory distress. Equal air entry bilateral, no wheezing/rales/rhonchi Skin: Skin warm and dry. Normal skin color. Normal skin turgor. Discharge Plan Discharge Clinical Impression: Otitis externa, Otitis media Patient Disposition: Home, Self-Care Instructions: Otitis Externa (DC), Ear Infection (ED) Additional Instructions: Use your antibiotics ear drops as prescribed Antibiotic as prescribed Pain medication as prescribed Prescriptions: New ibuprofen 600 mg tablet 600 mg PO Q6H PRN (Reason: fever or pain) Qty: 30 0RF amoxicillin-pot clavulanate 875-125 mg tablet 1 tab PO BID Qty: 20 0RF No Action omeprazole magnesium [Prilosec OTC] 20 mg tablet,delayed release (DR/EC) 40 mg PO DAILY Qty: 30 0RF ciprofloxacin-dexamethasone 0.3-0.1 % drops,suspension 4 drp otic (ear) left BID 7 Days Qty: 7.5 0RF sucralfate 1 gram tablet 1 g PO BID 28 Days Qty: 56 0RF ondansetron 4 mg tablet,disintegrating 4 mg PO Q8H PRN (Reason: nausea and vomiting) Qty: 10 0RF Print Language: Kiswahili
[2024-01-19 04:33] VITALS: BP 120/81; PULSE 50; RESP 17; TEMP 36.5; O2SAT 98
[2024-01-19] MEDS: Amoxicillin/Potassium Clav 875 MG TABLET PO (04:36)
[2024-01-19] MEDS: Ibuprofen 600 MG TABLET PO (04:36)
[2024-01-19 04:44] VITALS: BP 120/81; PULSE 50; RESP 17; TEMP 36.5; O2SAT 98
== END 2024-01-19 04:44 | disposition home or self-care (01) ==
PROVIDERS: Emergency Provider Internal Medicine; PCP Internal Medicine
DX: H60.92 Unspecified otitis externa, left ear (principal); H66.92 Otitis media, unspecified, left ear
CPT/HCPCS: 99283; 99284